=== PATIENT | female | born 1980 | race Caucasian/White ===

== ENCOUNTER → 2017-12-17 | Outpatient (CLI) | payer MEDICAID | LOC: FIMAGING 19:32 | PROVIDERS: ATTEND Psychiatry & Neurology Sleep Medicine | DX: R05 Cough (principal) ==

== ENCOUNTER → 2018-01-30 | Outpatient (CLI) | payer MEDICAID | LOC: FCPNEURO 21:00 | PROVIDERS: ATTEND Student in an Organized Health Care Education/Training Program | DX: G47.30 Sleep apnea, unspecified (principal) ==

== ENCOUNTER 2018-02-07 17:55 | Emergency (ER) | payer MEDICAID ==
[2018-02-07 18:03] VITALS: BP 114/93; PULSE 88; RESP 16; TEMP 98.8; O2SAT 97
--- NOTE | 2018-02-07 18:39 | EDPHY ---
H & P Stated Complaint: R ankle pain and swelling since this morning;no known injury Time Seen by Provider: 02/07/18 18:35 - Personal History LMP (Females 10-55): 15-21 Days Ago Current Tetanus Diphtheria and Acellular Pertussis (TDAP): Yes - Medical/Surgical History Hx Asthma: No Hx Chronic Respiratory Disease: No Hx Diabetes: No Hx Cardiac Disease: No Hx Renal Disease: No Hx Cirrhosis: No Hx Alcoholism: No Hx HIV/AIDS: No Hx Splenectomy or Spleen Trauma: No Other PMH: migraines. herpes - Social History Smoking Status: Current every day smoker Constitutional: Initial Vital Signs Temperature (C) 37.1 C 02/07/18 18:00 Heart Rate 88 02/07/18 18:00 Respiratory Rate 16 02/07/18 18:00 Blood Pressure 114/93 H 02/07/18 18:00 O2 Sat (%) 97 02/07/18 18:00 O2 Delivery Mode Room Air Allergies/Adverse Reactions: No Known Allergies Allergy (Verified 02/07/18 18:00) Home Medications: Medication Instructions Recorded Acyclovir 05/15/14 Ibuprofen [Motrin] 800 mg PO Q8 #20 tab 02/07/18 Medical Decision Making - Diagnostics Imaging Results: Imaging Impressions Ankle X-Ray 02/07/18 18:03 Impression: 1. 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 2. Soft tissue swelling suggests a sprain. Imaging: Discussed imaging studies w/ online marketing analyst Radiologist, I viewed and interpreted images myself ED Course/Re-evaluation: CHIEF COMPLAINT: Right ankle pain HISTORY OF PRESENT ILLNESS: The patient is a 37 y/o female with prior history of ankle fractures complaining of right ankle pain and swelling upon waking this morning. No known trauma. REVIEW OF SYSTEMS: A 10 point review of systems was performed and is negative with the exception of the elements mentioned in the history of present illness. PHYSICAL EXAM: HR, BP, O2 Sat, RR. Temp noted General Appearance: Alert, well hydrated, appropriate, and non-toxic appearing. Head: Atraumatic without scalp tenderness or obvious injury Eyes: Pupils equal, round, reactive to light and accommodation, EOMI, no trauma , no injection. Nose: Atraumatic, no rhinorrhea, clear. Throat: Mucus membranes moist. Neck: Supple Respiratory: No distress Cardiovascular: Normal right dorsalis pedis pulse. Good capillary refill all extremities. Musculoskeletal: Right ankle has mild lateral malleolus swelling, full ROM, no point tenderness. Otherwise normal active ROM of all extremities, atraumatic. Neurological: Alert, appropriate, and interactive. Nonfocal neuro exam. Skin: No rashes, good turgor, no nodules on palpation. PAST MEDICAL HISTORY: Prior ankle fractures PAST SURGICAL HISTORY: Denies SOCIAL HISTORY: Smoker. Lives in [place] DIAGNOSTICS/PROCEDURES/CRITICAL CARE TIME: X-ray: soft tissue swelling, no acute fracture DIFFERENTIAL DIAGNOSIS: The differential diagnosis for the patient's injury included but was not limited to sprain, fracture, ligamentous injury, contusion , muscular strain, and meniscus injury. MEDICAL DECISION MAKING: This is a 37 y/o female who presents with several hours of mild right ankle swelling and pain with no known preceding trauma. She has mild swelling along the lateral aspect of her right ankle with normal ROM and no point tenderness. X -ray is negative for acute fracture. Presentation is consistent with sprain. Patient will be discharged with standard sprain care instructions, stirrup splint, and referral to podiatry for follow up. She is comfortable with this plan. Departure - Departure Disposition: Home, Routine, Self-Care Clinical Impression: Right ankle sprain Qualifiers: Encounter type: initial encounter Involved ligament of ankle: other ligament Qualified Code(s): S93.491A - Sprain of other ligament of right ankle, initial encounter Condition: Good Instructions: Ankle Sprain (ED) Additional Instructions: 1. Take 800mg ibuprofen every 8 hours as needed for pain and inflammation over the next few days. 2. Apply ice to sore areas intermittently over the next 24-48 hours. 3. Wear splint for comfort. 4. Recommend weight bearing. 5. Follow up with specialist for unimproved symptoms over the next week. Referrals: Neena Wills PA [Primary Care Provider] - As per Instructions Otf Mclean DPM [Doctor of Podiatric Medicine] - As per Instructions Prescriptions: Ibuprofen [Motrin] 800 mg PO Q8 #20 tab Report Scribed for: William Clifford Report Scribed by: Valentine Amaya Date of Report: 02/07/18 Time of Report: 18:38
== END 2018-02-07 18:54 | disposition home or self-care (01) ==
DX: S93.491A Sprain of other ligament of right ankle, initial encounter (principal); F17.200 Nicotine dependence, unspecified, uncomplicated; X58.XXXA Exposure to other specified factors, initial encounter